=== PATIENT | male | born 1965 | race Caucasian/White ===

== ENCOUNTER 2017-11-13 07:02 | Emergency (ER) | payer MEDICARE, MEDICAID ==
[~2017-11-13] VITALS: Ht 162.6 cm; Wt 108.5 kg
[~2017-11-13 07:02] MED LIST: HYDR-569 PO; INSU100C10 SQ; LANTUS SUBCUT; LORA1TAB PO; LOSA50TA3 PO; MAGN296S50 PO; METF500T4 PO; PRAV40TA3 PO
[2017-11-13 07:25] VITALS: BP 152/87
[2017-11-13] MEDS ORDERED: CLIN-80 PO (08:33)
== END 2017-11-13 08:52 | disposition home or self-care (01) ==
LOC: ER 07:02
DX: L03.011 Cellulitis of right finger (principal); E78.00 Pure hypercholesterolemia, unspecified; I10 Essential (primary) hypertension; E11.9 Type 2 diabetes mellitus without complications; I25.10 Atherosclerotic heart disease of native coronary artery without angina pectoris; Z77.22 Contact with and (suspected) exposure to environmental tobacco smoke (acute) (chronic); Z98.890 Other specified postprocedural states; Z79.4 Long term (current) use of insulin
CPT/HCPCS: 10060; 99283

== ENCOUNTER 2019-01-15 17:13 | Emergency (ER) | payer MEDICARE, MEDICAID ==
[~2019-01-15] VITALS: Ht 185.4 cm; Wt 110.0 kg
[~2019-01-15 17:13] MED LIST changes: +CLIN-96 PO; +HYDR-4383 PO; -HYDR-569 PO; +METF-436 PO; -METF500T4 PO
[2019-01-15 17:25] VITALS: BP 168/72
[2019-01-15] MEDS ORDERED: BENZ-16 PO (19:41)
[2019-01-15] MEDS ORDERED: GUAI237S46 PO (19:41)
== END 2019-01-15 19:57 | disposition home or self-care (01) ==
LOC: ER 17:38
DX: J06.9 Acute upper respiratory infection, unspecified (principal); I10 Essential (primary) hypertension; E78.00 Pure hypercholesterolemia, unspecified; E11.9 Type 2 diabetes mellitus without complications; Z77.22 Contact with and (suspected) exposure to environmental tobacco smoke (acute) (chronic); Z79.4 Long term (current) use of insulin
CPT/HCPCS: 99283

== ENCOUNTER 2020-06-30 10:08 | Emergency (ER) | payer MEDICARE, MEDICAID ==
[~2020-06-30] VITALS: Ht 182.9 cm; Wt 106.8 kg
[~2020-06-30 10:08] MED LIST changes: -CLIN-96 PO; +CLIN-97 PO; -MAGN296S50 PO; +MAGN296S70 PO
[2020-06-30 10:14] VITALS: BP 164/83
[2020-06-30] MEDS ORDERED: SULF1TAB49 PO (10:37)
[2020-06-30] MEDS ORDERED: TETanus/Pertussis (Acell)/Diphther VAC/PF (Tdap-Adult) 0.5ml syringe IMVAC ONE (10:40)
[2020-06-30] MEDS ORDERED: CefTRIAXone 250MG inj IM ONE (10:40)
[2020-06-30] MEDS ORDERED: CefTRIAXone 1000mg IM Kit (w/lidocaine diluent) IM ONE (10:55)
== END 2020-06-30 11:14 | disposition home or self-care (01) ==
LOC: ER 10:08
DX: L02.01 Cutaneous abscess of face (principal); E78.00 Pure hypercholesterolemia, unspecified; I10 Essential (primary) hypertension; E11.9 Type 2 diabetes mellitus without complications; Z98.890 Other specified postprocedural states; Z79.4 Long term (current) use of insulin; Z79.2 Long term (current) use of antibiotics; Z79.899 Other long term (current) drug therapy
CPT/HCPCS: 90471; 90715; 96372; 99284; J0696